=== PATIENT | male | born 1960 | race Caucasian/White ===

== ENCOUNTER 2018-05-17 12:35 | Observation (INO) | payer BC ==
--- NOTE | 2018-05-17 13:11 | ED ---
Head Injury - HPI Summary HPI Summary: This is scribe Rip Weaver documenting for attending Romaine Arndt MD. This patient is a 57 year old M presenting to [facility] with a chief complaint of a head injury since 12:00. He fell off the back of his waistband setter and hit his head. Patient reports syncope, disorientation, not being aware of what day or month it is, and not being able to recall the details of the fall. He has no PMHx or PSHx. Patient does not smoke, drinks beer occasionally, and does not use substances. I, Dr. Arndt, personally performed the services described in this documentation as scribed in my presence, and it is both accurate and complete. - History Of Current Complaint Chief Complaint: EDHeadInjury Stated Complaint: FALL Hx Obtained From: Patient, EMS Mechanism Of Injury: Fall From Height Of: - pattern checker Onset/Duration: Started Hours Ago - Since 12:00, Traumatic Onset of Pain: Immediate, Post Accident Severity Currently: Mild Severity Initially: Mild Pain Intensity: 2 Pain Scale Used: 0-10 Numeric Associated Signs And Symptoms: Confusion - not being aware of what day or month it is, Memory Loss - not being able to recall the details of the fall, Other: - Syncope, disorientation - Allergies/Home Medications Allergies/Adverse Reactions: Allergies Allergy/AdvReac Type Severity Reaction Status Date / Time No Known Allergies Allergy Verified 05/17/18 12:55 Home Medications: Home Medications NK [No Home Medications Reported] 05/17/18 [History Confirmed 05/17/18] PMH/Surg Hx/FS Hx/Imm Hx Sensory History: Reports: Hx Cataracts Opthamlomology History: Denies: Hx Vision Problem EENT History: Denies: Hx Deafness - Immunization History Immunizations Up to Date: Yes Infectious Disease History: No Infectious Disease History: Denies: Traveled Outside the [place] in Last 30 Days - Family History Known Family History: Positive: Hypertension, Other - factor 5 leiden deficiency - Social History Alcohol Use: Daily Substance Use Type: Reports: None Smoking Status (MU): Never Smoked Tobacco Review of Systems Negative: Fever Neurological: Other - Confusion: not being aware of what day or month it is. Memory loss: not being able to recall the details of the fall. Disorientation. Positive: Syncope All Other Systems Reviewed And Are Negative: Yes Physical Exam - Summary Physical Exam Summary: VITAL SIGNS: Reviewed. GENERAL: Patient is a well-developed and nourished MALE who is lying comfortable in the stretcher. Patient is not in any acute respiratory distress. HEAD AND FACE: No signs of trauma. No ecchymosis, hematomas or skull depressions. No sinus tenderness. EYES: PERRLA, EOMI x 2, No injected conjunctiva, no nystagmus. EARS: Hearing grossly intact. Ear canals and tympanic membranes are within normal limits. MOUTH: Oropharynx within normal limits. NECK: Supple, trachea is midline, no adenopathy, no JVD, no carotid bruit, no c- spine tenderness, neck with full ROM. CHEST: Symmetric, no tenderness at palpation LUNGS: Clear to auscultation bilaterally. No wheezing or crackles. CVS: Regular rate and rhythm, S1 and S2 present, no murmurs or gallops appreciated. ABDOMEN: Soft, non-tender. No signs of distention. No rebound no guarding, and no masses palpated. Bowel sounds are normal. EXTREMITIES: FROM in all major joints, no edema, no cyanosis or clubbing. NEURO: Alert and oriented x 1 to himself. No acute neurological deficits. Speech is normal and follows commands. SKIN: Dry and warm Triage Information Reviewed: Yes Vital Signs On Initial Exam: Initial Vitals Temp Pulse Resp BP Pulse Ox 97.8 F 69 18 155/84 98 05/17/18 12:47 05/17/18 12:47 05/17/18 12:47 05/17/18 12:47 05/17/18 12:47 Vital Signs Reviewed: Yes Diagnostics - Vital Signs Vital Signs Temp Pulse Resp BP Pulse Ox 05/17/18 12:47 97.8 F 69 18 155/84 98 - Laboratory Result Diagrams: 05/17/18 13:00 05/17/18 13:00 Lab Statement: Any lab studies that have been ordered have been reviewed, and results considered in the medical decision making process. - Radiology Chest X-Ray Radiology Interpretation Completed By: Radiologist - 13:38. NO ACTIVE CARDIOPULMONARY DISEASE IS NOTED. ED Physician has reviewed this report. Brain MRI Radiology Interpretation Completed By: Radiologist - 16:37. NO ACUTE INTRACRANIAL FINDINGS. ED Physician has reviewed this report. - CT Brain CT CT Interpretation Completed By: Radiologist - 13:35. No CT evidence for traumatic brain injury or acute intracranial process. Negative unenhanced head CT for age. ED Physician has reviewed this imaging report. Cervical Spine CT CT Interpretation Completed By: Radiologist - 15:37. 1. STRAIGHTENING OF THE CERVICAL SPINE, NO EVIDENCE FOR FRACTURE. 2. MILD TO MODERATE CERVICAL SPONDYLOSIS. ED Physician has reviewed this report. Orbit X-Ray CT Interpretation Completed By: Radiologist - 15:58. No radiopaque orbital foreign bodies evident. ED Physician has reviewed this imaging report. - EKG No standard instances Cardiac Rate: NL - 72 BPM EKG Rhythm: Sinus Rhythm EKG Interpretation: 12:53. No ST elevations, normal axis. Re-Evaluation - Re-Evaluation 1 Re-Evaluation Time: 14:05 Comment: Patient is still A&O x 1 to himself. Head Injury Course/Dx Assessment/Plan: This patient is a 57 year old M presenting to [facility] with a chief complaint of a head injury since 12:00. He fell off the back of his waistband setter and hit his head. Patient reports syncope, disorientation, not being aware of what day or month it is, and not being able to recall the details of the fall. He has no PMHx or PSHx. Patient does not smoke, drinks beer occasionally, and does not use substances. Glucose 113. Urinalysis was negative for UTI. Brain CT: No CT evidence for traumatic brain injury or acute intracranial process. Negative unenhanced head CT for age. Cervical Spine CT: 1. STRAIGHTENING OF THE CERVICAL SPINE, NO EVIDENCE FOR FRACTURE. 2. MILD TO MODERATE CERVICAL SPONDYLOSIS. Orbit X-Ray: No radiopaque orbital foreign bodies evident. Chest X-Ray: NO ACTIVE CARDIOPULMONARY DISEASE IS. The patient is now back to normal. The patient is only alert to himself, even though he does not have any acute neurological deficiets. Krzysztof, I discussed my physical exam findings and results with Dr. Alba, who recommends the aptient to be admitted for observation, for an MRI of the brain and EEG. I discussed my physical exam results with Dr. White from hospital services, who will accept the patient for admission. At this point, the patient continues to be hemodynamically stable, alert and oriented x 1. - Diagnoses Differential Diagnosis/HQI/PQRI: Cervical Sprain, Concussion With LOC, Concussion Without LOC, Intracranial Bleed Provider Diagnoses: Altered mental status, Concussion - Physician Notifications Discussed Care Of Patient With: Jersey Alba - Neurology Time Discussed With Above Provider: 14:23 Instructed by Provider To: Admit As Inpatient Discharge - Sign-Out/Discharge Documenting (check all that apply): Patient Departure - Admitted by Amando White MD - Discharge Plan Condition: Stable Disposition: ADMITTED TO [facility] - Billing Disposition and Condition Condition: STABLE Disposition: Admitted to [facility]
[2018-05-17 13:20] LABS: ABS Basophils 0.1 10^3/ul (0-0.2); ABS Eosinophils 0.1 10^3/ul (0-0.6); ABS Lymphocytes 1.8 10^3/ul (1.0-4.8); ABS Monocytes 0.9 10^3/ul (0-0.8); ABS Neutrophils 6.4 10^3/ul (1.5-7.7); ABS Nucleated RBC 0 10^3/ul; Eosinophil % 1.6 % (0-6); Hematocrit 45 % (42-52); Hemoglobin 15.5 g/dl (14.0-18.0); Lymphocyte % 19.2 % (25-47); Mean Corpuscular HGB Conc 35 g/dl (31-36); Mean Corpuscular Hemoglobin 32 pg (27-31); Mean Corpuscular Volume 93 fL (80-94); Mean Platelet Volume 9.7 um3 (7.4-10.4); Nucleated Red Blood Cells % 0; Platelet Count 168 10^3/ul (150-450); Red Blood Count 4.85 10^6/ul (4.00-5.40); Red Cell Distribution Width 13 % (10.5-15); White Blood Count 9.3 10^3/ul (3.5-10.8)
[2018-05-17 13:33] LABS: EGFR Non-African American 68.5 (>60)
--- NOTE | 2018-05-17 13:38 | RAD ---
Indication: Syncope. Fall. Comparison: No relevant prior exams available on the [facility] PACS for comparison. Technique: Noncontrast CT vertex of skull through foramen magnum. Report: The sulci, ventricles, and basal cisterns are normal for age. Germain matter white matter differentiation is preserved without evidence for edema. No intra or extra axial hemorrhage, mass, or fluid collection detected. Unremarkable visualized orbital contents. Unremarkable calvarium and skull base. Unremarkable scalp. The visualized paranasal sinuses and mastoid air spaces are clear. IMPRESSION: #. No CT evidence for traumatic brain injury or acute intracranial process. Negative unenhanced head CT for age.
--- NOTE | 2018-05-17 13:42 | RAD ---
Indication: Syncope. Single frontal view of the chest performed at May 17, 2018 was reviewed. Comparison is made with previous exam dated August 13, 2006. No mediastinal shift is noted. Heart is of normal size and configuration. Lung garcia appear clear. IMPRESSION: NO ACTIVE CARDIOPULMONARY DISEASE IS NOTED.
[2018-05-17 14:51] LABS: Urine Appearance Clear; Urine Blood Negative (Negative); Urine Color Yellow; Urine Ketones 1+ (Negative); Urine Protein Negative (Negative); Urine Specific Gravity 1.023 (1.010-1.030); Urine Urobilinogen Negative (Negative)
--- NOTE | 2018-05-17 15:40 | RAD ---
INDICATION: Trauma. COMPARISON: There are no prior studies available for comparison. TECHNIQUE: Contiguous axial sections were obtained from the skull base through the T1 vertebra. Images were reconstructed in the sagittal and coronal planes. FINDINGS: There is straightening of the cervical spine with loss of the normal cervical lordosis. No prevertebral soft tissue swelling or fracture is seen. At the C2-C3 level there is mild posterior uncinate process spurring. No significant spinal canal or neural foraminal narrowing is seen. At the C3-C4 level there is mild posterior uncinate process spurring. No significant spinal canal narrowing is present. There is mild neural foraminal narrowing on the left side. At the C4-C5 level no significant spinal canal or neural foraminal narrowing is seen. At the C5-C6 level there is moderate posterior uncinate process spurring which causes mild to moderate spinal canal narrowing and moderate bilateral neural foraminal narrowing. At the C6-C7 level there is mild posterior uncinate process spurring. No significant spinal canal narrowing is present. There is mild neural foraminal narrowing on the left side. The lung apices appear clear. IMPRESSION: 1. STRAIGHTENING OF THE CERVICAL SPINE, NO EVIDENCE FOR FRACTURE. 2. MILD TO MODERATE CERVICAL SPONDYLOSIS.
--- NOTE | 2018-05-17 16:01 | RAD ---
INDICATION: Previous metal injury to eyes. Assess for retained metallic foreign body prior to MRI. COMPARISON: May 17, 2018 CT. TECHNIQUE: AP and lateral views of the orbits were obtained. FINDINGS: No radiopaque foreign bodies are identified at the level of the orbits or visualized calvarium. Dental amalgam noted. IMPRESSION: No radiopaque orbital foreign bodies evident.
--- NOTE | 2018-05-17 16:40 | RAD ---
INDICATION: Concussion. COMPARISON: CT brain May 17, 2018 TECHNIQUE: sagittal T1 FLAIR, axial diffusion, axial T1 FLAIR, axial T2, axial T2 FLAIR, and SWI images were acquired. FINDINGS: Craniocervical junction: The craniocervical junction appears normal. Ventricles/sulci: The ventricles and cisterns are normal in size and configuration for age. Brain parenchyma: There are no acute appearing focal parenchymal abnormalities. There is a tiny hyperintensity at the harvey-white junction of the right parietal lobe likely representing the sequela of prior microvascular ischemic event There is no evidence of intracranial mass or mass effect. The diffusion weighted images show no evidence of acute ischemia. Intracranial hemorrhage: There is no intracranial hemorrhage. Extra-axial spaces: There are no extra-axial fluid collections or masses. Orbits: There are no MR abnormalities of the orbital structures. Paranasal sinuses/mastoid: The paranasal sinuses are clear. The mastoid air cells are well aerated.. Vascular: No abnormalities are seen. Other: None IMPRESSION: NO ACUTE INTRACRANIAL FINDINGS.
[2018-05-17] MEDS ORDERED: Ondansetron INJ* 2 MG/ML VIAL IV PRN (17:00)
--- NOTE | 2018-05-17 18:23 | HP ---
CC: Dr. Morales* [facility] MEDICINE HISTORY AND PHYSICAL: DATE OF ADMISSION: 05/17/18. PRIMARY CARE PHYSICIAN: Dr. Morales. ATTENDING PHYSICIAN: Dr. Raf White* (dictation provided by Demetrice Musa NP ). CHIEF COMPLAINT: Fall with confusion. HISTORY OF PRESENT ILLNESS: Mr. Francis is a 57-year-old male with no significant past medical history, who presents today to the hospital after falling from his wwe wrestler and having confusion and memory loss. Mr. Francis states that he has been in his normal state of health. He remembers waking up this morning and going out to mow the lawn. The next thing he remembers after that is being evaluated by EMS and brought to the emergency room. His reports that their nephew was out in the yard when he looked up and saw that the wwe wrestler was riding off and crashing into a nearby tractor with no rider. The patient had been on the wwe wrestler and so the nephew went to look for him and found him lying on the ground. The patient seemed confused. In the emergency room, Mr. Francis states that he is feeling well. He has no headache. He reports his neck feels a little bit stiff. His notes that since initially on arrival to the hospital, he was asking the same question over and over again. In regards to his nephew who had been there at the time of the fall, he said repeatedly, "Where is Roman? is Roman okay?" At this point, he answers most questions appropriately, but though he know it is summer, he believes it is April, and was not able to tell me the day of the week. He has no neurological deficits and his work up thus far is negative including a CT of the brain, a chest x-ray, a cervical spine CT and MRI of the brain. PAST MEDICAL HISTORY: None. MEDICATIONS: None. ALLERGIES: None. FAMILY HISTORY: The patient reports that his mother and father are alive and well. His dad has dementia. SOCIAL HISTORY: The patient denies smoking, but states that he is a daily drinker, drinking 6 to 7 beers per day. He drank his normal amount of beer last night. He has had no beer today and he states he has never had withdrawal symptoms. He denies drug use. He lives with his , Yue and states she is the healthcare proxy. REVIEW OF SYSTEMS: A 14-point review of systems was completed with Mr. Francis and all those not mentioned above were negative. PHYSICAL EXAMINATION GENERAL: Mr. Francis is sitting in the bed. He is in no acute distress. VITAL SIGNS: Temperature 97.8, pulse rate 69, respiratory rate 18, O2 saturation 99% on room air, blood pressure 155/92. HEENT: Extraocular movements are intact. LUNGS: Clear to auscultation bilaterally with no accessory muscle use and good aeration. HEART: S1, S2. No murmur, rub, or gallop and regular. ABDOMEN: Soft, nontender with bowel sounds positive x4. EXTREMITIES: No cyanosis or edema. NEUROLOGIC: He is alert. He is oriented x2. He moves all extremities equally. There is no facial asymmetry or focal weakness. There is no ataxia with finger-to- nose or [id number]. SKIN: Intact. DIAGNOSTIC STUDIES/LAB DATA: WBC 9.3, hemoglobin 15.5, hematocrit 45, platelet count 168. Sodium 140, potassium 3.8, chloride 106, serum bicarbonate 24, BUN 20, creatinine 1.11, glucose is 113, lactic acid 1.5, ammonia 33. Tox screen negative including for alcohol, cannabis, barbiturates, etc. Urine shows no evidence of infection. The x-ray of the orbit, shows no radio-opaque orbital or foreign bodies are evident. CT of the brain shows "no CT evidence for traumatic brain injury or acute intracranial process, negative unenhanced CT for age." Chest x-ray shows "no acute cardiopulmonary diseases noted." The EKG shows sinus rhythm with no evidence of ischemia. The cervical spine CT shows "straightening of the cervical spine, no evidence for fracture, [id number] cervical spondylosis." The brain MRI shows "no acute intracranial findings." ASSESSMENT AND PLAN: Mr. Francis is a 57-year-old male with no known past medical history, who presents today after being found fallen off of his wwe wrestler and confused. Our plans are for observation for the followin. Fall with confusion: The patient has no memory of the events. He may have simply had a mechanical fall from the mower for some reason but he may have had a heart arrhythmia or seizure leading to the fall. He is confused now, which could represent a postictal state. We have been able to rule out stroke with MRI and CT of the brain. Would like to rule out seizure with EEG and would also like to monitor for arrhythmias with telemetry monitoring and obtain a transthoracic echocardiogram given the unusual events and lack of clear etiology. The patient also may just have a concussion after hitting his head which would explain his confusion. He also has some features of transient global amnesia as described his with the repetitive asking of the same question. 2. DVT prophylaxis with early mobility. 3. Code status is full code. TIME SPENT: Approximately 60 minutes were spent on the admission of this patient, more than half the time spent with the patient at the bedside reviewing the events leading up to this hospitalization, performing my physical examination, and reviewing my plan of care. DEMETRICE MUSA NP [id number]/CPS #: [id number] ANDREZ
[2018-05-17] MEDS: Acetaminophen TAB* 325 MG PO PRN (19:44)
[2018-05-18] MEDS: Acetaminophen TAB* 325 MG PO PRN ×2 (03:20→08:30)
--- NOTE | 2018-05-18 09:12 | ECHO ---
Patient: DANN FIGUEROA [facility] Rec#: [id number] : 1960 Date: 05/18/2018 Age: 57y Height: 191 cm / 75.2 in Weight: 108.8 kg / 239.8 lbs Sex: M BSA: 2.38 Room#: [facility] Admit Date#: 05/17/2018 Type: Inpatient Referring: Demetrice Musa NP Reading: Raleigh Regalado DO Clinical Data Assistant: Desi Abebe RDCS CC: Diego Morales Transthoracic Echocardiogram Indication: Syncope BP: 132/76 HR: 53 Rhythm: Bradycardia Findings History: No known cardiac history. Technical Comments: The study quality is good. Completed at 0840. Left Ventricle: The left ventricular chamber size is normal. There is no left ventricular hypertrophy. Global left ventricular wall motion and contractility are within normal limits. There is normal left ventricular systolic function. The estimated ejection fraction is 55-60%. Normal left ventricular diastolic filling is observed. Left Atrium: The left atrium is mildly dilated. Right Ventricle: The right ventricular chamber size and systolic function are within normal limits. Right Atrium: The right atrium is mildly dilated. Aortic Valve: The aortic valve is trileaflet. There is no evidence of aortic valve thickening. There is a trace of aortic regurgitation. There is no evidence of aortic stenosis. Mitral Valve: The mitral valve leaflets are mildly thickened. There is a trace of mitral regurgitation. There is no evidence of mitral stenosis. Tricuspid Valve: The tricuspid valve leaflets are normal. There is a physiologic tricuspid regurgitation. Unable to estimate the right ventricular systolic pressure. There is no tricuspid stenosis. Pulmonic Valve: The pulmonic valve appears normal. There is a trace pulmonic regurgitation. There is no pulmonic stenosis. Pericardium: There is no significant pericardial effusion. Aorta: There is mild dilatation of the ascending aorta. There is no dilatation of the aortic arch. There is mild dilatation of the aortic root. Pulmonary Artery: The main pulmonary artery is not well visualized. Venous: The inferior vena cava is dilated. There is a greater than 50% respiratory change in the inferior vena cava dimension. Conclusions The left ventricular chamber size is normal. There is no left ventricular hypertrophy. There is normal left ventricular systolic function. The estimated ejection fraction is 55-60%. Global left ventricular wall motion and contractility are within normal limits. The left atrium is mildly dilated. The right ventricular chamber size and systolic function are within normal limits. No significant valvular abnormalities noted None prior for comparison at time of interpretation Measurements Name Value Normal Range RVIDd (AP) 2D 3.9 cm (0.9 - 2.6) RVDdMajor (2D) 4.7 cm (2.2 - 4.4) RAd ISD 4CH 5.4 cm (3.4 - 4.9) RA (A4C)W 4.5 cm (2.9 - 4.6) IVSd (2D) 1 cm (0.6 - 1) LVPWd (2D) 0.9 cm (0.6 - 1) LVIDd (2D) 5.5 cm (3.6 - 5.4) LVIDs (2D) 3.5 cm - LV FS (2D) 38 % (25 - 45) Aortic Annulus 2.1 cm (1.4 - 2.6) Ao root diameter (2D) 3.7 cm (2.1 - 3.5) Ascending Ao 3.6 cm (2.1 - 3.4) Aortic arch 3.1 cm (1.8 - 3.4) LA dimension (AP) 2D 4.4 cm (2.3 - 3.8) LAd ISD 4CH 5.4 cm (2.9 - 5.3) LA ISD 4CH W 4.5 cm (2.5 - 4.5) Name Value Normal Range LA ESV BP (A/L) index 20 ml/m2 - Name Value Normal Range MV E-wave Vmax 0.7 m/sec - MV deceleration time 190 msec - MV A-wave Vmax 0.4 m/sec - MV E:A ratio 1.7 ratio - LV septal e' Vmax 0.09 m/sec - LV lateral e' Vmax 0.13 m/sec - LV E:e' septal ratio 7.78 ratio - LV E:e' lateral ratio 5.38 ratio - Name Value Normal Range AV Vmax 1.2 m/sec - AV VTI 26.2 cm - AV peak gradient 6 mmHg - AV mean gradient 3 mmHg - LVOT Vmax 0.7 m/sec - LVOT VTI 22.5 cm - LVOT peak gradient 5 mmHg - LVOT mean gradient 3 mmHg - HEYDI Vmax 0.6 m/sec - Name Value Normal Range IVC diameter 2.1 cm - Name Value Normal Range PV Vmax 1.1 m/sec - PV peak gradient 5 mmHg - AL end-diastolic Vmax 0.7 m/sec -
[2018-05-18 12:05] VITALS: BP 108/67
--- NOTE | 2018-05-18 22:05 | EEG ---
ELECTROENCEPHALOGRAPHY: DATE OF STUDY: - ROOM #[id number] DATE OF DICTATION: 05/18/18 PATIENT OF: Dr. White. CLINICAL PROBLEM: This 57-year-old man being evaluated for an episode of confusion either following or precipitating a fall off a director of transportation. MEDICATIONS: Include Zofran. REPORT: With the patient awake, background cerebral activity consists of moderate amplitude posterior dominant 10 Hz rhythm, which attenuates with eye opening and reappears with eye closure. The patient never falls asleep. No activation procedures are performed. No epileptiform potentials, focal abnormalities, or major asymmetries of background are noted. CLINICAL IMPRESSION: This awake EEG is within normal limits. [id number]/[facility] #: [id number] [facility] CENTERAndrez
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
== END 2018-05-18 17:50 | disposition home or self-care (01) ==
LOC: ED 12:35 → MEDTELE 17:51
PROVIDERS: ADMIT Internal Medicine; ATTEND Internal Medicine
DX: S06.0X1A Concussion with loss of consciousness of 30 minutes or less, initial encounter (principal); W19.XXXA Unspecified fall, initial encounter; Y93.H2 Activity, gardening and landscaping; Y92.9 Unspecified place or not applicable; R41.0 Disorientation, unspecified; R55 Syncope and collapse; R41.82 Altered mental status, unspecified; S09.90XA Unspecified injury of head, initial encounter
CPT/HCPCS: 36415; 70030; 70450; 70551; 71045; 72125; 80053; 80307; 80320; 80329; 81003; 82140; 82550; 83605; 83735; 84484; 85025; 93005; 93306; 95816; 96374; 99284; A9270-GY; G0378; G0480